=== PATIENT | female | born 1985 | race Caucasian/White ===

== ENCOUNTER 2018-06-27 20:18 | Outpatient (REF) | payer MEDICAID, SELFPAY ==
[2018-06-27 19:30] LABS: HCT 34.9 % (36.0-46.0); HGB 11.8 g/dL (12.0-15.5); Mean Corp. HGB Concentration 33.8 g/dL (32.0-36.0); Mean Corpuscular Hemoglobin 32.3 pg (27.0-33.0); Mean Corpuscular Volume 95.6 fL (80-95); Platelet Count 233 x1000/uL (130-400); RBC 3.65 m/cumm (4.00-5.20); RBC Distribution Width 11.8 % (11.7-14.6); White Blood Cell Count 4.78 k/cumm (4.4-10.8)
[2018-06-27 19:52] LABS: ALT 22 U/L (12-78); AST 25 U/L (15-37); Albumin 4.7 g/dL (3.4-5.0); Alkaline Phosphatase 70 U/L (46-116); Anion Gap 8.2 mmol/L (3-11); BUN 13 mg/dL (7-18); Bilirubin, Total 0.6 mg/dL (0.2-1.0); CO2 30.8 mmol/L (21.0-32.0); CREATININE 0.84 mg/dL (0.55-1.02); Calcium 9.3 mg/dL (8.5-10.1); Chloride 100 mmol/L (98-107); Glucose 84 mg/dL (70-100); Potassium 4.1 mmol/L (3.5-5.1); Sodium 139 mmol/L (136-145); TSH (W/Ref FT4) 69.15 uIU/mL (0.358-3.74); Total Protein 8.5 g/dL (6.4-8.2)
[2018-06-27 20:12] LABS: FREE T4 0.39 ng/dL (0.76-1.46)
== END 2018-06-27 20:38 ==
LOC: NCHCN 20:18
PROVIDERS: PCP Nurse Practitioner; Visit Provider Nurse Practitioner
DX: F41.8 Other specified anxiety disorders (principal); R53.83 Other fatigue
CPT/HCPCS: 80053; 85027; 84439; 84443

== ENCOUNTER 2018-07-02 10:16 | Outpatient (REF) | payer MEDICAID, SELFPAY ==
[2018-07-02 13:56] LABS: TSH (W/Ref FT4) 53.51 uIU/mL (0.358-3.74)
[2018-07-02 14:13] LABS: FREE T4 0.47 ng/dL (0.76-1.46)
== END 2018-07-02 10:36 ==
LOC: NCHCN 10:16
PROVIDERS: PCP Nurse Practitioner; Visit Provider Nurse Practitioner
DX: R53.83 Other fatigue (principal); R94.6 Abnormal results of thyroid function studies
CPT/HCPCS: 84439; 84443

== ENCOUNTER 2018-08-15 10:47 | Outpatient (REF) | payer MEDICAID, SELFPAY ==
[2018-08-15 13:35] LABS: TSH (W/Ref FT4) 4.54 uIU/mL (0.358-3.74)
[2018-08-15 13:58] LABS: FREE T4 1.02 ng/dL (0.76-1.46)
== END 2018-08-15 11:07 ==
LOC: NCHCN 10:47
PROVIDERS: PCP Nurse Practitioner; Visit Provider Nurse Practitioner
DX: E03.9 Hypothyroidism, unspecified (principal)
CPT/HCPCS: 84439; 84443

== ENCOUNTER 2018-09-26 13:20 | Outpatient (REF) | payer MEDICAID, SELFPAY ==
[2018-09-26 19:55] LABS: Iron 63 ug/dL (50-175); Total Iron Binding Capacity 349 ug/dL (250-450); Transferrin Sat 18 % (15-50)
[2018-09-26 20:22] LABS: Ferritin 43 ng/mL (8-388); Vitamin B12 958 pg/mL (193-986)
[2018-09-26 20:26] LABS: Folate > 20.0 ng/mL (8.6-20.0)
== END 2018-09-26 13:40 ==
LOC: NCHCN 13:20
PROVIDERS: PCP Nurse Practitioner; Visit Provider Nurse Practitioner
DX: L65.9 Nonscarring hair loss, unspecified (principal)
CPT/HCPCS: 82607; 82728; 82746; 83540; 83550

== ENCOUNTER 2022-10-20 11:54 | Emergency (ER) | payer SELFPAY ==
[2022-10-20 11:59] VITALS: BP 120/87; PULSE 73; RESP 18; O2SAT 100
--- NOTE | 2022-10-20 12:00 | DI.CT_ITS ---
Exam(s) CT BRAIN NECK CTA EXAM: CT BRAIN NECK CTA CLINICAL HISTORY: new parsons, dizziness, periph vision ch, neck manip. TECHNIQUE: Imaging Protocol: Axial CT angiography was performed with multi-slice acquisition and mu lti-planar and 3D reconstructions. CONTRAST MATERIAL: Intravenous: Omnipaque 350 Contrast volume:structured data in ml COMPARISON: No exams were available for comparison FINDINGS: CT Head W/O and W contrast: Ventricles and Extra axial spaces: Normal in size and morphology for the patient's age. Hemorrhage: None. Cerebral parenchyma: Normal. Midline shift: None. Brainstem/Cerebellum: Normal. Calvarium: Normal. Visualized Paranasal sinuses/Mastoids: Clear. Soft Tissues: Unremarkable. Enhancement: Normal. CTA Brain W: Internal Carotid Arteries: Petrous: Normal. Cavernous: Normal. Cerebral: Normal. Middle Cerebral Arteries: Right: No aneurysm, occlusion or significant stenosis. Left: No aneurysm, occlusion or significant stenosis. Anterior Cerebral Arteries: Right: No aneurysm, occlusion or significant stenosis. Left: No aneurysm, occlusion or significant stenosis. Posterior cerebral Arteries: Right: No aneurysm, occlusion or significant stenosis. Left: No aneurysm, occlusion or significant stenosis. Vertebral Arteries: Right: No aneurysm, occlusion or significant stenosis. Left: No aneurysm, occlusion or significant stenosis. Basilar Artery: No aneurysm, occlusion or significant stenosis. CTA Neck W: Common Carotid: Right: No dissection, occlusion or significant stenosis. Left: No dissection, occlusion or significant stenosis. External Carotid: Right: No dissection, occlusion or significant stenosis. Left: No dissection, occlusion or significant stenosis. Internal Carotid: Right: No dissection, occlusion or significant stenosis. Left: No dissection, occlusion or significant stenosis. Vertebral Artery: Right: No dissection, occlusion or significant stenosis. Left: No dissection, occlusion or significant stenosis. Lung Apices: Normal. Bones: No acute abnormality. Cervical spine shows normal alignment. No evidence of fracture. Soft Tissues: Normal. IMPRESSION: 1. Normal CTA examination of the [place]. 2. Unremarkable CT Head. 3. Normal CTA examination of the neck. RADIATION DOSE DELIVERED: 2,146.19mGy.cm Total DLP DATA REPOSITORY: All CT scans at this facility are submitted to the National Radiology Data Registry (NRDR) Dose Index Registry (DIR) with the [employer] ([employer]). RADIATION OPTIMIZATION: All CT scans at this facility use at least one of these dose optimization te chniques: automated exposure control; mA and/or kV adjustment per patient size (includes targeted exa ms where dose is matched to clinical indication); or iterative reconstruction.
[2022-10-20 13:26] LABS: Abs Immature Grans 0.02 10^3/uL (0.0-0.06); Absolute Basophil Count 0.04 10^3/uL (0.0-0.2); Absolute Eosinophil Count 0.11 10^3/uL (0.0-0.7); Absolute Lymphocyte Count 1.24 10^3/uL (1.2-3.4); Absolute Monocyte Count 0.34 10^3/uL (0.1-0.8); Absolute Neutrophil Count 2.96 10^3/uL (1.2-6.7); Basophils % 0.8; Eosinophils % 2.3; HCT 38.7 % (36.0-46.0); Immature Grans % 0.4; Lymphocytes % 26.3; MCH 30.2 pg (27.0-33.0); MCHC 33.6 % (32.0-36.0); MCV 90 fL (80-95); MPV 8.9 fL (8.0-11.0); Monocytes % 7.2; Platelet Count 271 10^3/uL (130-400); RDW 11.7 % (11.7-14.6); RDW-SD 37.9 fL; WBC 4.71 10^3/uL (4.4-10.8)
[2022-10-20] MEDS: Normal Saline 100 ML 200 ML (13:26)
[2022-10-20] MEDS: Prochlorperazine 10 MG/2 ML VIAL 5 MG IVP (13:26)
[2022-10-20 13:28] LABS: Bilirubin Negative (Negative); Blood Negative (Negative); Clarity Clear (Clear); Glucose Negative (Negative); Ketones Negative (Negative); Leukocyte Esterase Negative (Negative); Nitrite Negative (Negative); Urobilinogen 0.2 mg/dL (Up to 0.2); pH 6.5 (5-8)
[2022-10-20 13:52] LABS: ALT 54 U/L (14-59); AST 33 U/L (15-37); Albumin 4.1 g/dL (3.4-5.0); Alkaline Phosphatase 63 U/L (46-116); Anion Gap 5.9 mmol/L (3-11); BUN 8 mg/dL (7-18); Bilirubin, Total 0.3 mg/dL (0.2-1.0); CO2 32.1 mmol/L (21.0-32.0); CREATININE 0.7 mg/dL (0.55-1.02); Calcium 8.6 mg/dL (8.5-10.1); Chloride 103 mmol/L (98-107); Estimated GFR 113.46 (mL/min/1.73m2); Glucose 93 mg/dL (74-106); Magnesium 1.9 mg/dL (1.8-2.4); Potassium 3.6 mmol/L (3.5-5.1); Sodium 141 mmol/L (136-145); Total Protein 7.9 g/dL (6.4-8.2)
[2022-10-20] MEDS: Omnipaque 350 MG/ML 100 ML BTL IJ (14:05)
[2022-10-20] MEDS: Normal Saline - Diluent 50 ML VIAL IJ (14:06)
[2022-10-20 14:10] LABS: FREE T4 0.58 ng/dL (0.76-1.46)
[2022-10-20 14:46] VITALS: BP 105/66; PULSE 61; RESP 15; TEMP 36.3; O2SAT 97
--- NOTE | 2022-10-20 14:51 | NUR.NOTE ---
Nursing Note: Referral faxed to [facility] for new on set complex migraine, within 2 weeks.
--- NOTE | 2022-10-20 15:02 | ED.GENADUL_ITS ---
Discharge Plan Disposition Patient Disposition: Home Discharge Details Clinical Impression: Headache, Hypothyroid Primary Care Provider: Leisa Seaman ED Provider: Greta Parish Home Meds and New Rx's Prescriptions: No Action No Known Home Meds Discharge Instructions Instructions: Hypothyroidism (ED), General Headache (ED) Additional Instructions: Please follow-up with neurology Follow-up with your primary care physician and have your thyroid rechecked I suspect you may have had a complex migraine, this may recur Have your thyroid rechecked by your doctor Please return earlier should you have new or worsening complaints Referrals: Za Toney MD [ [facility] ST[facility]FF PHYSICIAN] - Discharge Data Discharge Date/Time-TO BE ENTERED AT DEPARTURE: 10/20/22 14:52 Medical Decision Making This 37-year-old female who presents with atypical headache presentation, 1 week post chiropractic manipulation of her neck No obvious evidence of CVA or TIA clinically on exam, however given recent chiropractic manipulation I did order CTA head and neck which were negative for acute abnormality Patient's symptoms have resolved without medication She is neurologically intact I suspect she had an atypical migraine or complex migraine, however with 1 episode I would recommend close outpatient neurology for formal assessment and diagnosis Vitals are stable and patient has a nonfocal exam at time of reassessment She will be placed on the referral list for neurology and return precautions reviewed in detail and patient expressed understanding Diagnostic labs were reviewed that did not show evidence of acute abnormality, blood pressure stable Medical Records Medical records reviewed: Yes I reviewed the patient's medical records. Lab Data Lab results reviewed: Yes I reviewed the patient's lab results. HPI General Date/Time Provider Initiated Documentation: 10/20/22 12:14 . HPI Narrative: This 37-year-old female presents with report of cute onset of headache radiating from yazidism to neck on left side of face with a vague peripheral aura sensation in her right eye that started approximately 1030 [address] She states that she took some ibuprofen with persistent pain and presented to the emergency department secondary to persistence of symptoms of some dizziness. She denies any chest pain or shortness of breath. She denies prior history of headaches or migraines. She does state she had a manipulation by her chiropractor approximately a week ago. She denies any chance of . She states that her symptoms are otherwise resolving at this time. Related Data Home Medications Medication Instructions Recorded Confirmed Unknown [No Known Home Meds] 10/20/22 10/20/22 Allergies Allergy/AdvReac Type Severity Reaction Status Date / Time Penicillins Allergy Mild Itching Unverified 10/20/22 12:03 General Stated Complaint: Headache SCOT: 3 PFSH All Active Problems (Updated 10/20/22 @ 14:45 by IRAIS Hassan) Headache (Acute) Hypothyroid (Chronic) Social History Smoking/Tobacco Use Status: Never Smoking risk assessment performed?: Yes Alcohol Intake: never Drug use: Never Substance use type: does not use Housing: house Do you feel safe at home: Yes Do you feel safe in your relationship?: Yes Exam Const General: cooperative, comfortable and no acute distress HENMT Head: normal to inspection Eyes Pupils: PERRL EOM: EOM intact bilaterally Resp Effort & Inspection: normal respiratory effort Auscultation: clear to auscultation bilaterally Cardio Rate: regular rate Rhythm: regular rhythm Neuro General: patient alert and patient oriented x3 Cranial Nerves: CN's II-XI intact bilaterally and tongue midline Cognition: normal cognition Speech: speech normal Gait: normal gait Sensory Exam: no sensory deficits noted Course Vital Signs Vital signs: Vital Signs Pulse 73 10/20/22 11:59 Respiratory Rate 18 10/20/22 11:59 Blood Pressure 120/87 10/20/22 11:59 Pulse Oximetry 100 10/20/22 11:59 Temperature 36.3 C L 10/20/22 14:46 Temperature Source Skin 10/20/22 11:59 Pulse 61 10/20/22 14:46 Respiratory Rate 15 10/20/22 14:46 Respiratory Effort Normal 10/20/22 13:28 Blood Pressure 105/66 10/20/22 14:46 Blood Pressure Position Sitting 10/20/22 11:59 Pulse Oximetry 97 10/20/22 14:46 Oxygen Delivery Method Room Air 10/20/22 11:59 Oxygen Flow Rate 0 10/20/22 11:59 Pain Level 4 10/20/22 11:59 Comment left side of face/yazidism 10/20/22 11:59 Lab/Test Results Lab/Test Results: Laboratory Tests Range/Units 10/20/22 10/20/22 10/20/22 13:00 13:19 13:19 WBC (4.4-10.8) 10^3/uL 4.71 RBC (3.93-5.22) 10^6/uL 4.30 Hgb (11.2-15.7) g/dL 13.0 Hct (36.0-46.0) % 38.7 MCV (80-95) fL 90 MCH (27.0-33.0) pg 30.2 MCHC (32.0-36.0) % 33.6 RDW (11.7-14.6) % 11.7 Plt Count (130-400) 10^3/uL 271 MPV (8.0-11.0) fL 8.9 Immature Gran % 0.4 Neutrophils % 63.0 Lymphocytes % 26.3 Monocytes % 7.2 Eosinophils % 2.3 Basophils % 0.8 Nucleated RBC % (0.0-0.3) % 0.0 Absolute Neutrophils (1.2-6.7) 10^3/uL 2.96 Absolute Lymphocytes (1.2-3.4) 10^3/uL 1.24 Absolute Monocytes (0.1-0.8) 10^3/uL 0.34 Absolute Eosinophils (0.0-0.7) 10^3/uL 0.11 Absolute Basophils (0.0-0.2) 10^3/uL 0.04 Sodium (136-145) mmol/L 141 Potassium (3.5-5.1) mmol/L 3.6 Chloride (98-107) mmol/L 103 Carbon Dioxide (21.0-32.0) mmol/L 32.1 H Anion Gap (3-11) mmol/L 5.9 BUN (7-18) mg/dL 8 Creatinine (0.55-1.02) mg/dL 0.7 Est GFR (CKD-EPI 2020) (mL/min/1.73m2) 113.46 Glucose (74-106) mg/dL 93 Calcium (8.5-10.1) mg/dL 8.6 Magnesium (1.8-2.4) mg/dL 1.9 Total Bilirubin (0.2-1.0) mg/dL 0.3 AST (15-37) U/L 33 ALT (14-59) U/L 54 Alkaline Phosphatase (46-116) U/L 63 Total Protein (6.4-8.2) g/dL 7.9 Albumin (3.4-5.0) g/dL 4.1 TSH (0.36-3.74) uIU/mL 11.30 H Free T4 (0.76-1.46) ng/dL 0.58 L Urine Color (Yellow) Yellow Urine Clarity (Clear) Clear Urine pH (5-8) 6.5 Ur Specific [place] (1.005-1.025) 1.010 Urine Protein (Negative) mg/dL Negative Urine Ketones (Negative) mg/dL Negative Urine Blood (Negative) Negative Urine Nitrite (Negative) Negative Urine Bilirubin (Negative) Negative Urine Urobilinogen (Up to 0.2) mg/dL 0.2 Ur Leukocyte Esterase (Negative) Negative Urine Glucose (Negative) mg/dL Negative POC- Test(urine) Negative
== END 2022-10-20 14:52 | disposition home or self-care (01) ==
PROVIDERS: Emergency Provider Physician Assistant; PCP Nurse Practitioner
DX: R51.9 Headache, unspecified (principal); E03.9 Hypothyroidism, unspecified; R42 Dizziness and giddiness
CPT/HCPCS: 36415; 70496; 70498; 80053; 81025; 96374; 99285; 81003; 83735; 84439; 84443; 85025; 99283; J0780; J3490